=== PATIENT | female | born 1995 | race Two or more races ===

== ENCOUNTER 2018-08-31 21:38 | Emergency (ER) | payer BC, OTHER ==
[~2018-08-31] VITALS: Ht 165.1 cm; Wt 55.8 kg
[2018-08-31 21:47] VITALS: BP 106/73
[2018-08-31] MEDS ORDERED: TETANUS-DIPTH-ACEL PERTUSSIS 0.5ML SYRG IM ONE (23:15)
== END 2018-08-31 23:02 | disposition home or self-care (01) ==
LOC: ER 21:38
DX: S69.92XA Unspecified injury of left wrist, hand and finger(s), initial encounter (principal); W22.8XXA Striking against or struck by other objects, initial encounter; Y93.89 Activity, other specified; Y99.8 Other external cause status; Y92.89 Other specified places as the place of occurrence of the external cause
CPT/HCPCS: 73130; 90471; 90715